=== PATIENT | female | born 1960 | race Caucasian/White ===

== ENCOUNTER 2022-08-28 13:13 | Emergency (ER) | payer OTHER ==
[~2022-08-28] VITALS: Ht 167.6 cm; Wt 77.1 kg
[2022-08-28] MEDS ORDERED: PERCOCET 5-3251 EACH PO (14:17)
[2022-08-28] MEDS ORDERED: TYLENOL325 MG (14:34)
== END 2022-08-28 14:54 | disposition home or self-care (01) ==
LOC: ER 13:13
DX: S82.842A Displaced bimalleolar fracture of left lower leg, initial encounter for closed fracture (principal); W18.30XA Fall on same level, unspecified, initial encounter; Y93.89 Activity, other specified; Y92.821 Forest as the place of occurrence of the external cause; Y99.9 Unspecified external cause status